=== PATIENT | female | born 1955 | race Caucasian/White ===

== ENCOUNTER → 2017-12-07 15:57 | Outpatient (CLI) | payer OTHER, SELFPAY ==
[2017-12-10 02:41] LABS: Fecal Immunochemical Test NOT DETECTED
== END ==
PROVIDERS: PCP Family Medicine; Visit Provider Family Medicine
DX: Z12.11 Encounter for screening for malignant neoplasm of colon (principal)
CPT/HCPCS: 82274

== ENCOUNTER → 2017-12-22 11:43 | Outpatient (CLI) | payer OTHER, SELFPAY ==
--- NOTE | 2017-12-22 11:45 | DI.MG.S_ITS ---
BILATERAL DIGITAL SCREENING MAMMOGRAM 3D/2D WITH CAD: 12/22/2017 CLINICAL: Baseline exam. Routine screening. No prior exams were available for comparison. The tissue of both breasts is heterogeneously dense. This may lower the sensitivity of mammography. Current study was also evaluated with a Computer Aided Detection (CAD) system. No significant masses, calcifications, or other findings are seen in either breast. IMPRESSION: NEGATIVE There is no mammographic evidence of malignancy. A 1 year screening mammogram is recommended.(12/23/2018) This exam was interpreted at Station ID: [id number]. NOTE: For mammograms, a report in lay terms will be sent to the patient. Approximately 15% of breast malignancies will not be visualized mammographically. In the management of a palpable breast mass, a negative mammogram must not discourage biopsy of a clinically suspicious lesion. Electronically Signed By: Simone dozier/mac:12/22/2017 17:07:15 letter sent: Normal Exam ACR BI-RADS Category 1: Negative 3341F
== END ==
PROVIDERS: PCP Family Medicine; Visit Provider Family Medicine
DX: Z12.31 Encounter for screening mammogram for malignant neoplasm of breast (principal)
CPT/HCPCS: 77063; 77067

== ENCOUNTER → 2018-09-01 12:52 | Outpatient (CLI) | payer OTHER, SELFPAY ==
[2018-09-01 13:25] LABS: Add Manual Diff / Slide Review NO; Basophils Absolute Auto 0 /uL (0-100); Eosinophils Absolute Auto 0 /uL (0-450); Eosinophils Percent Auto 0.9 % (2-4); Hematocrit 42.3 % (36-46); Hemoglobin 14.6 g/dL (12.0-16.0); Lymphocytes Absolute Auto 1300 /uL (1100-4500); Mean Corpuscular HGB Conc 34.5 % (30-36); Mean Corpuscular Hemoglobin 31.4 PG (26-34); Mean Corpuscular Volume 90.8 fL (80-100); Monocytes Absolute Auto 200 /uL (0-900); Monocytes Percent Auto 6.6 % (3-14); Neutrophils Absolute Auto 2100 /uL (1500-7000); Neutrophils Percent Auto 56.5 % (50-75); Platelet Count 197 X10^3/uL (150-400); Red Blood Cell Count 4.66 X10^6/uL (4.0-5.2); Red Cell Distribution Width 13.8 % (11.6-14.8); White Blood Cell Count 3.8 X10^3/uL (4.5-11.0)
[2018-09-01 14:09] LABS: Alanine Aminotransferase 19 IU/L (9-52); Albumin 4.4 g/dL (3.5-5.0); Albumin Globulin Ratio 1.8 (1.0-2.8); Alkaline Phosphatase 55 U/L (38-126); Aspartate Aminotransferase 22 IU/L (14-36); BUN Creatinine Ratio 13.8 (6-22); Bilirubin Total 0.6 mg/dL (0.2-1.3); Blood Urea Nitrogen 11 mg/dL (7-17); Calcium 9.5 mg/dL (8.4-10.2); Carbon Dioxide 31 mmol/L (22-32); Chloride 101 mmol/L (98-107); Estimated Glomerular Filt Rate > 60.0 mL/min (>60); Globulin 2.4 g/dL (1.7-4.1); Glucose 52 mg/dL (80-110); HEMOLYSIS < 15 (0-50); Lipase 86 U/L (23-300); Potassium 4.3 mmol/L (3.4-5.1); Sodium 140 mmol/L (137-145); Total Protein 6.8 g/dL (6.3-8.2)
[2018-09-07 00:19] LABS: (tTG) Ab, IgA < 1 U/mL
== END ==
PROVIDERS: PCP Family Medicine; Visit Provider Family Medicine
DX: R11.0 Nausea (principal)
CPT/HCPCS: 36415; 80053; 82784; 83516; 83690; 85025; 86255

== ENCOUNTER → 2018-11-02 13:16 | Outpatient (CLI) | payer OTHER, SELFPAY | PROVIDERS: PCP Family Medicine; Visit Provider Family Medicine | DX: K58.9 Irritable bowel syndrome, unspecified (principal) | CPT/HCPCS: 36415; 81376; 81382 ==

== ENCOUNTER → 2018-12-19 12:26 | Outpatient (CLI) | payer OTHER, SELFPAY | PROVIDERS: Family Provider Family Medicine; PCP Family Medicine; Visit Provider Family Medicine | DX: M81.0 Age-related osteoporosis without current pathological fracture (principal); Z78.0 Asymptomatic menopausal state; Z82.62 Family history of osteoporosis | CPT/HCPCS: 77080 ==

== ENCOUNTER → 2019-01-02 15:57 | Outpatient (CLI) | payer OTHER, SELFPAY ==
--- NOTE | 2019-01-02 | DI.MG.S_ITS ---
BILATERAL DIGITAL SCREENING MAMMOGRAM 3D/2D WITH CAD: 01/02/2019 CLINICAL: Routine screening. Comparison is made to exam dated: 12/22/2017 [facility]. The tissue of both breasts is heterogeneously dense. This may lower the sensitivity of mammography. Current study was also evaluated with a Computer Aided Detection (CAD) system. There are punctate calcifications of the right breast at anterior depth, with greatest involvement of the the superior lateral and inferior medial quadrants. There is an irregular asymmetry of the superior left breast at posterior depth seen only on the LMLO view. There is an irregular asymmetry of the inferior left breast at middle to posterior depth seen only on the LMLO view. IMPRESSION: INCOMPLETE: NEEDS ADDITIONAL IMAGING EVALUATION 1) There are punctate calcifications of the right breast at anterior depth, with greatest involvement of the the superior lateral and inferior medial quadrants. Additional diagnostic mammogram views with possible ultrasound are recommended for further evaluation. 2) There is an irregular asymmetry of the superior left breast at posterior depth. Additional diagnostic mammogram views with possible ultrasound are recommended for further evaluation. 3) There is an irregular asymmetry of the inferior left breast at middle to posterior depth. Additional diagnostic mammogram views with possible ultrasound are recommended for further evaluation. This exam was interpreted at Station ID: [id number]. NOTE: For mammograms, a report in lay terms will be sent to the patient. Approximately 15% of breast malignancies will not be visualized mammographically. In the management of a palpable breast mass, a negative mammogram must not discourage biopsy of a clinically suspicious lesion. Electronically Signed By: Srinivasan Solorio M.D. ecl/:01/03/2019 11:25:20 letter sent: Additional Imaging Needed ACR BI-RADS Category 0: Incomplete 3340F
== END ==
PROVIDERS: PCP Family Medicine; Visit Provider Family Medicine
DX: Z12.31 Encounter for screening mammogram for malignant neoplasm of breast (principal)
CPT/HCPCS: 77063; 77067

== ENCOUNTER → 2019-01-29 09:39 | Outpatient (CLI) | payer OTHER, SELFPAY ==
--- NOTE | 2019-01-29 09:40 | DI.MG.S_ITS ---
BILATERAL DIGITAL DIAGNOSTIC MAMMOGRAM 3D/2D WITH AXILLARY TAIL: 01/29/2019 CLINICAL: Additional evaluation requested from prior study. Comparison is made to exams dated: 01/02/2019 mammogram, 12/22/2017 mammogram - [facility], 03/25/2016 mammogram, and 01/22/2013 mammogram - [facility]. The tissue of both breasts is heterogeneously dense. This may lower the sensitivity of mammography. Previously identified diffuse punctate calcifications of the right breast at anterior depth, with greatest involvement of the the superior lateral and inferior medial quadrants on comparison screening mammograms of 01/02/19 persists with additional views. Previously noted irregular asymmetry of the superior left breast at posterior depth seen only on the LMLO view on comparison screening mammogram of 01/02/19 persists with additional views. Previously noted irregular asymmetry of the inferior left breast at middle to posterior depth seen only on the LMLO view on comparison screening mammogram of 01/02/19 persists with additional views. There are left breast vascular calcifications. There are linear scar markers overlying the right breast. No other significant masses, calcifications, or other findings are seen in either breast. IMPRESSION: INCOMPLETE: NEEDS ADDITIONAL IMAGING EVALUATION 1) Previously identified diffuse punctate calcifications of the right breast at anterior depth, with greatest involvement of the the superior lateral and inferior medial quadrants on comparison screening mammograms of 01/02/19 persists with additional views. A follow-up mammogram in 6 months is recommended to demonstrate stability/exclude maligancy. 2) Previously noted irregular asymmetry of the superior left breast at posterior depth seen only on the LMLO view on comparison screening mammogram of 01/02/19 persists with additional views. A targeted ultrasound is recommended and will be performed immediately following this exam. 3) Previously noted irregular asymmetry of the inferior left breast at middle to posterior depth seen only on the LMLO view on comparison screening mammogram of 01/02/19 persists with additional views. A targeted ultrasound is recommended and will be performed immediately following this exam. This exam was interpreted at Station ID: [id number]. NOTE: For mammograms, a report in lay terms will be sent to the patient. Approximately 15% of breast malignancies will not be visualized mammographically. In the management of a palpable breast mass, a negative mammogram must not discourage biopsy of a clinically suspicious lesion. Electronically Signed By: Srniivasan Solorio M.D. ecl/:01/29/2019 11:18:54 ACR BI-RADS Category 0: Incomplete 3340F
--- NOTE | 2019-01-29 09:40 | DI.US.S_ITS ---
LIMITED ULTRASOUND OF LEFT BREAST: 01/29/2019 CLINICAL: Patient returns today to evaluate a focal asymmetry in the left breast. Comparison is made to exams dated: 01/29/2019 mammogram, 01/02/2019 mammogram, 12/22/2017 mammogram - [facility], 03/25/2016 mammogram, and 03/05/2014 mammogram - [facility]. Color flow and real-time ultrasound of the left breast 11-1 o'clock and 4-8 o'clock regions were performed. Lovelace scale images of the real-time examination were reviewed. There is no ultrasound correlate for the previously noted irregular asymmetry of the superior left breast at posterior depth seen only on the LMLO view on comparison screening mammogram of 01/02/19 which persisted with additional views performed earlier today 01/29/19. There is a 0.5 x 0.4 x 0.6 cm oval indistinct hypoechoic cyst with posterior acoustic enhancement and no vascularity on Doppler ultrasound in the left breast at 6:30 position 2 cm from the nipple. This may correlate with the previously noted irregular asymmetry of the inferior left breast at middle to posterior depth seen only on the LMLO view on comparison screening mammogram of 01/02/19 which persisted with additional views performed earlier today 01/29/19. IMPRESSION: PROBABLY BENIGN 1) There is no ultrasound correlate for the previously noted irregular asymmetry of the superior left breast at posterior depth seen only on the LMLO view on comparison screening mammogram of 01/02/19 which persisted with additional views performed earlier today 01/29/19. A follow-up mammogram and possible ultrasound in 6 months is recommended to demonstrate stability. 2) There is a 0.5 x 0.4 x 0.6 cm oval indistinct hypoechoic cyst with posterior acoustic enhancement and no vascularity on Doppler ultrasound in the left breast at 6:30 position 2 cm from the nipple. This may correlate with the previously noted irregular asymmetry of the inferior left breast at middle to posterior depth seen only on the LMLO view on comparison screening mammogram of 01/02/19 which persisted with additional views performed earlier today 01/29/19. A follow-up mammogram and possible ultrasound in 6 months is recommended to demonstrate stability. 3) A follow-up diagnostic mammogram of the right breast is recommended to demonstrate stability of the previously identified diffuse punctate calcifications of the right breast at anterior depth first described on comparison screening mammograms of 01/02/19 which persisted with additional views on 01/29/19. 4) The patient is advised to monitor her breasts and to return sooner for re-evaluation should she feel anything grow or change. This exam was interpreted at Station ID: [id number]. Electronically Signed By: Srinivasan Solorio M.D. ecl/:01/29/2019 11:24:35 letter sent: Followup Recommended Ultrasound BI-RADS: 3 Probably benign
== END ==
PROVIDERS: Family Provider Family Medicine; PCP Family Medicine; Visit Provider Family Medicine
DX: R92.8 Other abnormal and inconclusive findings on diagnostic imaging of breast (principal); R92.1 Mammographic calcification found on diagnostic imaging of breast; N60.02 Solitary cyst of left breast; N64.89 Other specified disorders of breast
CPT/HCPCS: 76642; 77066; G0279

== ENCOUNTER → 2019-10-12 12:36 | Outpatient (CLI) | payer OTHER, SELFPAY ==
--- NOTE | 2019-10-12 12:37 | DI.US.S_ITS ---
ULTRASOUND OF LEFT BREAST: 10/12/2019 CLINICAL: 6 month follow-up of cysts. Comparison is made to exams dated: 10/12/2019 mammogram, 01/29/2019 ultrasound, 01/29/2019 mammogram, 01/02/2019 mammogram, 12/22/2017 mammogram - [facility], and 03/25/2016 mammogram - [facility]. Color flow ultrasound of the left breast was performed on the areas of interest. Lovelace scale images of the real-time examination were reviewed. The complicated cyst in the left breast at 6 o'clock anterior depth is slightly decreased in size from the comparison ultrasound dated 01/29/19. IMPRESSION: PROBABLY BENIGN The complicated cyst in the left breast is probably benign. A follow-up mammogram and an ultrasound in 6 months is recommended to demonstrate stability. Future imaging is recommended as follows: 04/12/2020 follow-up right mammogram for right breast calcifications. This exam was interpreted at Station ID: [id number]. Electronically Signed By: Rosanne tomlin/:10/12/2019 13:53:47 letter sent: Followup Recommended Ultrasound BI-RADS: 3 Probably benign
--- NOTE | 2019-10-12 12:37 | DI.MG.S_ITS ---
BILATERAL DIGITAL DIAGNOSTIC MAMMOGRAM 3D/2D SHORT-TERM FOLLOW-UP: 10/12/2019 CLINICAL: Short term follow up for bilateral breasts. Comparison is made to exams dated: 01/29/2019 ultrasound, 01/29/2019 mammogram, 01/02/2019 mammogram, 12/22/2017 mammogram - [facility], and 03/25/2016 mammogram - [facility]. The tissue of both breasts is heterogeneously dense. This may lower the sensitivity of mammography. There are stable diffuse punctate calcifications in the right breast central to the nipple anterior depth. The irregular asymmetry in the left breast posterior depth superior region seen on the mediolateral oblique view only is no longer seen. There also is an asymmetry in the left breast posterior depth inferior region seen on the mediolateral oblique view only. This is not significantly changed. No other significant masses or calcifications are seen in either breast. IMPRESSION: INCOMPLETE: NEEDS ADDITIONAL IMAGING EVALUATION The stable diffuse punctate calcifications in the right breast central to the nipple anterior depth are probably benign. A follow-up in 6 months is recommended. An ultrasound is recommended to further characterize the previously seen irregular asymmetry in the left breast posterior depth superior region seen on the mediolateral oblique view only. The stable asymmetry in the left breast posterior depth inferior region seen on the mediolateral oblique view only is indeterminate. A targeted ultrasound of the left breast is recommended and will be performed immediately following this exam. This exam was interpreted at Station ID: [id number]. NOTE: For mammograms, a report in lay terms will be sent to the patient. Approximately 15% of breast malignancies will not be visualized mammographically. In the management of a palpable breast mass, a negative mammogram must not discourage biopsy of a clinically suspicious lesion. Electronically Signed By: Rosanne tomlin/:10/12/2019 13:35:07 ACR BI-RADS Category 0: Incomplete 3340F
== END ==
PROVIDERS: Family Provider Family Medicine; PCP Family Medicine; Referring Provider Family Medicine; Visit Provider Family Medicine
DX: R92.8 Other abnormal and inconclusive findings on diagnostic imaging of breast (principal); R92.1 Mammographic calcification found on diagnostic imaging of breast; N60.02 Solitary cyst of left breast
CPT/HCPCS: 76642; 77066; G0279

== ENCOUNTER → 2019-12-25 14:01 | Outpatient (CLI) | payer OTHER, SELFPAY ==
[2019-12-25 15:13] LABS: Cholesterol 220 mg/dL (140-199); HDL Cholesterol 61 mg/dL (40-60); LDL Cholesterol Calculated 134 mg/dL (<100); Triglycerides 127 mg/dL (35-150)
[2019-12-25 15:41] LABS: Thyroid Stimulating Hormone 0.589 uIU/mL (0.47-4.68)
== END ==
PROVIDERS: Family Provider Family Medicine; PCP Family Medicine; Referring Provider Family Medicine; Visit Provider Family Medicine
DX: Z13.220 Encounter for screening for lipoid disorders (principal); Z13.29 Encounter for screening for other suspected endocrine disorder
CPT/HCPCS: 36415; 80061; 84443

== ENCOUNTER → 2020-06-09 12:41 | Outpatient (CLI) | payer OTHER, SELFPAY ==
--- NOTE | 2020-06-09 12:43 | DI.MG.S_ITS ---
BILATERAL DIGITAL DIAGNOSTIC MAMMOGRAM 3D/2D SHORT-TERM FOLLOW-UP: 06/09/2020 CLINICAL: Short term follow up for bilateral breasts. Comparison is made to exams dated: 10/12/2019 mammogram, 01/29/2019 mammogram, and 01/02/2019 mammogram - [facility]. The tissue of both breasts is heterogeneously dense. This may lower the sensitivity of mammography. There are stable benign diffuse punctate calcifications in the right breast central to the nipple anterior depth. The benign asymmetry in the left breast posterior depth inferior region seen on the mediolateral oblique view only is no longer seen. No other significant masses or calcifications are seen in either breast. IMPRESSION: BENIGN There is no mammographic evidence of malignancy. A 1 year screening mammogram is recommended. This exam was interpreted at Station ID: [id number]. NOTE: For mammograms, a report in lay terms will be sent to the patient. Approximately 15% of breast malignancies will not be visualized mammographically. In the management of a palpable breast mass, a negative mammogram must not discourage biopsy of a clinically suspicious lesion. Electronically Signed By: Hang Hanna acr/:06/09/2020 13:26:41 letter sent: Normal Exam ACR BI-RADS Category 2: Benign Finding(s) 3342F
== END ==
PROVIDERS: Family Provider Family Medicine; PCP Family Medicine; Referring Provider Family Medicine; Visit Provider Family Medicine
DX: R92.8 Other abnormal and inconclusive findings on diagnostic imaging of breast (principal)
CPT/HCPCS: 77066; G0279

== ENCOUNTER → 2021-01-21 09:30 | Outpatient (CLI) | payer OTHER, SELFPAY ==
[2021-01-21 10:32] LABS: Cholesterol 222 mg/dL (140-199); Glucose 97 mg/dL (80-110); HDL Cholesterol 64 mg/dL (40-60); LDL Cholesterol Calculated 141 mg/dL (<100); Triglycerides 87 mg/dL (35-150)
== END ==
PROVIDERS: Family Provider Family Medicine; PCP Family Medicine; Referring Provider Family Medicine; Visit Provider Family Medicine
DX: E78.5 Hyperlipidemia, unspecified (principal); Z13.1 Encounter for screening for diabetes mellitus
CPT/HCPCS: 36415; 80061; 82947

== ENCOUNTER → 2021-02-18 13:11 | Outpatient (CLI) | payer OTHER, SELFPAY ==
--- NOTE | 2021-02-18 13:13 | DI.US.S_ITS ---
PROCEDURE: US ABDOMEN LIMITED INDICATIONS: upper abdominal mass TECHNIQUE: Real-time focused scanning was performed of the abdomen, with image documentation. COMPARISON: None. FINDINGS: Within the inferior epigastric area at the area of clinical concern, there is a fat containing partially reducible hernia along the midline. The hernia neck measures 3.9 x 2.2 mm IMPRESSION: Small fat containing ventral wall hernia seen within the inferior epigastric region, which is partially reducible. Dictated by: Andrea Betts M.D. on 02/18/2021 at 13:08 Approved by: Andrea Betts M.D. on 02/18/2021 at 13:09
== END ==
PROVIDERS: Family Provider Family Medicine; PCP Family Medicine; Referring Provider Family Medicine; Visit Provider Family Medicine
DX: K43.9 Ventral hernia without obstruction or gangrene (principal)
CPT/HCPCS: 76705

== ENCOUNTER → 2021-04-16 13:12 | Outpatient (CLI) | payer OTHER, SELFPAY ==
--- NOTE | 2021-04-16 13:13 | DI.US.S_ITS ---
PROCEDURE: US PELVIC COMPLETE INDICATIONS: PAIN. FAMILY HISTORY OF BENIGN OVARIAN TUMOR TECHNIQUE: Real-time scanning was performed of the pelvic organs, with image documentation. Additional endovaginal scanning was necessary due to incomplete visualization of the adnexal and endometrial structures by transabdominal scanning. COMPARISON: None. FINDINGS: Uterus: Normal size and appearance of the uterus. No uterine mass. Normal thickness endometrium measuring 6 millimeters in double air thickness. Ovaries: The right ovary measures 0.9 x 1.1 x 2.3 centimeters and contains a 1.2 centimeter hypoechoic thick-walled cyst without peripheral vascularity. Left ovary not visualized Other: No pathologic free abdominal or pelvic fluid. IMPRESSION: Thick walled right ovarian cyst measuring 1.1 centimeters. This may represent a collapsing hemorrhagic cyst, although follow-up recommended to document resolution in 4-6 weeks. Ovarian neoplasm is not strictly excluded. We strive to produce accurate, complete, and clear reports of imaging services. To assist us in improving patient care, this report was composed using standard report templates and voice recognition software. Therefore, it may contain abnormal punctuation, insertions and/or omissions. Occasional wrong-word or sound-alike substitutions may occur. Though we review the report and make efforts to correct it, we do recommend that the report be read carefully in proper context to recognize any text inaccuracies. Dictated by: Otto Cardoso M.D. on 04/16/2021 at 15:01 Approved by: Otto Cardoso M.D. on 04/16/2021 at 15:06
== END ==
PROVIDERS: Family Provider Family Medicine; PCP Family Medicine; Referring Provider Family Medicine; Visit Provider Family Medicine
DX: N83.201 Unspecified ovarian cyst, right side (principal); R10.2 Pelvic and perineal pain
CPT/HCPCS: 76830; 76856

== ENCOUNTER → 2021-05-27 12:37 | Outpatient (CLI) | payer OTHER, SELFPAY ==
--- NOTE | 2021-05-27 12:41 | DI.US.S_ITS ---
PROCEDURE: US PELVIC COMPLETE INDICATIONS: 6 WEEK F/U RIGHT OVARIAN CYST TECHNIQUE: Real-time scanning was performed of the pelvic organs, with image documentation. Additional endovaginal scanning was necessary due to incomplete visualization of the adnexal and endometrial structures by transabdominal scanning. COMPARISON: [facility], [place], US PELVIC COMPLETE, 04/16/2021, 13:37. FINDINGS: Uterus: Uterus is anteverted and normal in size at 4.9 x 2.0 x 3.9 cm. The myometrium is homogeneous. The endometrium measures 1.0 mm combined thickness. Ovaries: The right ovary measures 1.7 x 1.0 x 0.9 cm. The left ovary measures 2.2 x 0.9 x 0.7 cm. The previous right ovarian thick-walled cystic lesion has decreased in size since the previous study. It was previously 1.0 x 0.8 x 0.9 cm. It is now 0.8 x 0.5 x 0.4 cm. Other: No pathologic free abdominal or pelvic fluid. IMPRESSION: Slight interval decrease in size of cystic lesion of the right ovary. Comment: In this patient with a family history of ovarian tumor, consider follow-up ultrasound in 12 months. We strive to produce accurate, complete, and clear reports of imaging services. To assist us in improving patient care, this report was composed using standard report templates and voice recognition software. Therefore, it may contain abnormal punctuation, insertions and/or omissions. Occasional wrong-word or sound-alike substitutions may occur. Though we review the report and make efforts to correct it, we do recommend that the report be read carefully in proper context to recognize any text inaccuracies. Dictated by: Adams Avendaño M.D. on 05/27/2021 at 16:37 Approved by: Adams Avendaño M.D. on 05/27/2021 at 16:42
== END ==
PROVIDERS: Family Provider Family Medicine; PCP Family Medicine; Referring Provider Physician Assistant; Visit Provider Physician Assistant
DX: N83.201 Unspecified ovarian cyst, right side (principal)
CPT/HCPCS: 76856

== ENCOUNTER → 2021-06-22 14:08 | Outpatient (CLI) | payer OTHER, SELFPAY ==
--- NOTE | 2021-06-22 | DI.MG.S_ITS ---
BILATERAL DIGITAL SCREENING MAMMOGRAM 3D/2D WITH CAD: 06/22/2021 CLINICAL: Routine screening. Comparison is made to exams dated: 06/09/2020 mammogram, 10/12/2019 mammogram, 01/29/2019 mammogram, and 01/02/2019 mammogram - [facility]. The tissue of both breasts is heterogeneously dense. This may lower the sensitivity of mammography. Current study was also evaluated with a Computer Aided Detection (CAD) system. No significant masses, calcifications, or other findings are seen in either breast. There has been no significant interval change. IMPRESSION: NEGATIVE There is no mammographic evidence of malignancy. A 1 year screening mammogram is recommended. This exam was interpreted at Station ID: [id number] NOTE: For mammograms, a report in lay terms will be sent to the patient. Approximately 15% of breast malignancies will not be visualized mammographically. In the management of a palpable breast mass, a negative mammogram must not discourage biopsy of a clinically suspicious lesion. Electronically Signed By: Tee mckenzie/mac:06/22/2021 15:02:41 letter sent: Normal Exam ACR BI-RADS Category 1: Negative 3341F
== END ==
PROVIDERS: Family Provider Family Medicine; PCP Family Medicine; Referring Provider Family Medicine; Visit Provider Family Medicine
DX: Z12.31 Encounter for screening mammogram for malignant neoplasm of breast (principal)
CPT/HCPCS: 77063; 77067

== ENCOUNTER → 2021-06-30 10:38 | Outpatient (CLI) | payer OTHER, SELFPAY ==
[2021-06-30 11:15] LABS: COVID19 -Nasal RAPID Negative (Negative)
== END ==
PROVIDERS: Family Provider Family Medicine; PCP Family Medicine; Visit Provider Surgery
DX: Z01.812 Encounter for preprocedural laboratory examination (principal); Z20.822 Contact with and (suspected) exposure to COVID-19
CPT/HCPCS: 87635; C9803

== ENCOUNTER 2021-07-01 08:38 | Day surgery (SDC) | payer OTHER, SELFPAY ==
[2021-06-29 08:16] VITALS: BMI 22.6
[2021-07-01] VITALS (10 sets, daily range): BP systolic 107–136; BP diastolic 52–69; PULSE 64–122; RESP 8–18; TEMP 36.1–36.8; O2SAT 98–100; BMI 22.6
[2021-07-01] MEDS: LACTATED RINGERS 1,000 ML 100 ML IV (09:19)
--- NOTE | 2021-07-01 10:22 | PM.HP.1 ---
History of Present Illness History of Present Illness Date Patient Seen: 07/01/21 Chief complaint: OPEN VENTRAL HERNIA REPAIR Narrative: 65 y.o woman with a partially reducible epigastric ventral hernia here for elective repair. No interval changes in health. Patient History Medical History Abnormal Pap smear of cervix Anesthesia complication Anxiety (~2015) Chicken pox (~1961) Depression (~2006) Gastric ulcer (~1969) GERD (gastroesophageal reflux disease) (~2009) Infertility (~1991) Irritable bowel syndrome (~1994) Lactose intolerance (~1994) Migraines (~2009) Osteopenia Osteoporosis (~2011) Plantar fibromatosis (~2016) Plantar warts (~2014) Vision disorder Surgical History Anesthesia Breast fibroadenoma (~1977) H/O laparoscopy (1995) History of nasal surgery (1972) History of tonsillectomy (~1979) Hx of breast surgery (1979) Family & Social History Family History Father Bladder cancer Heart disease Hyperlipidemia Hypertension Stroke Smoker Mother Cancer Diabetes mellitus Mental health problem Smoker Sister Parkinson's disease Hypertension Grandmother Mental health problem Grandfather Cancer Social History: household members spouse other piano, kayaking, skiing Tobacco & Substance use: Smoking Status Never smoker alcohol intake frequency a few times a week Substance Use Type does not use Meds Home Medications and Allergies Home Medications Medication Instructions Recorded Confirmed Type modulon 200 mg PO BID 01/29/19 07/01/21 History amitriptyline 25 mg tablet See Rx Instructions .ROUTE 02/27/21 07/01/21 Rx .COMPLEX #90 tab calcium carbonate 500 mg-vitamin 2 tab PO DAILY 04/09/21 07/01/21 History D3 10 mcg (400 unit) tablet (Calcium 500 + D) zolpidem 5 mg tablet 5 mg PO BEDTIME PRN #90 tab 05/22/21 07/01/21 Rx clonazepam 0.5 mg tablet 0.5 mg PO DAILY PRN #30 tab 06/10/21 07/01/21 Rx Allergies Allergy/AdvReac Type Severity Reaction Status Date / Time No Known Drug Allergies Allergy Verified 04/07/21 15:20 Exam Vital Signs (past 8 hours): - 07/01/21 09:00 Temperature 98.2 F Pulse Rate 90 Respiratory Rate 16 Blood Pressure 107/60 Pulse Oximetry 100 Oxygen Delivery Method Room Air Narrative Exam Narrative: Gen-Adult woman alert and oriented Abdomen-Soft, reducible epigastric hernia. Ext-WWP Assessment & Plan Assessment and plan (1) Ventral hernia: Qualifiers: Obstruction and gangrene presence: without obstruction or gangrene Qualified Code(s): K43.9 - Ventral hernia without obstruction or gangrene Status: Acute Assessment & Plan narrative: 65 y.o woman with a reducible epigastric ventral hernia here for elective repair. Operative details discussed. Risks including bleeding, infection, reocuccurence, seroma damage to surrounding structures. Her questions have been answered and she is in agreement with this plan. Time Spent With Patient Critical Care time: I spent a total of [] minutes of critical care time on this patient's care today; this time is exclusive of procedural time.
[2021-07-01] MEDS: CEFAZOLIN 2 GM/20 ML SYRINGE IV (11:00)
--- NOTE | 2021-07-01 11:05 | SUR.OPER ---
Supine on padded OR bed, head on pillow, arms secured on padded arm boards at <90 degrees abduction, legs uncrossed, safety belt at thigh, tape over blanket over lower legs.
[2021-07-01] MEDS: BUPIVACAINE 0.25% (PF) VIAL 30 ML INJ (11:09)
[2021-07-01] MEDS: HYDROCODONE/ACET 5/325 TABLET 1 TAB PO ×2 (12:04→12:43)
[2021-07-01] MEDS: ONDANSETRON 4 MG/2 ML INJ IV (12:14)
[2021-07-01] MEDS: fentaNYL 100 MCG/2 ML INJ IV (12:15)
--- NOTE | 2021-07-01 12:48 | SUR.PHASEI ---
Water, ice chips, applesauce, and soda cracker given prior to PO med
--- NOTE | 2021-07-01 14:39 | SUR.PHASEII ---
13:08-Patient recieved from Eugenie Garcias RN. patient sitting upright. Concern over pain on deep inspiration, in no obvious distress. reported and vs reflect in normal limits. Reassured with ventral hernia/ incision site , may have discomfort due to location of incision/ referred pain. using Incentive Spirometer prn with out complaints/distress and reaching 1500ml or more. sterristrips cdi. abdomen soft. updated. 1345-Home instructions reveiwed with patient.questions answered. given Dr Borrego's phone number if emergency/questions once home. stated did not know how she will get oob, let relax more. vss. no changes with dressing/op area. Sats remain 99-100% on room air. 1400-states readiness to progress to home now. encouraged to go home. Sat up at edge of bed to dress. Discussed calling if needed help. 1410-iv out. Used restroom,[employer] Flor[employer] states patient voided qs. Discharged by w/chair with all belongings and incentive spirometer/ice pack / instruction papers. Enouraged to use drive thru or have go into pharmacy for oyster picker of medications.
--- NOTE | 2021-07-01 16:13 | PM.OP.1 ---
Operative Date/Time/Diagnoses Date of procedure: 07/01/21 Time of procedure: 16:13 Pre-op diagnosis: Ventral hernia Post-op diagnosis: same Procedure & Clinicians Procedure: Open ventral hernia repair with mesh Same procedure as scheduled: Yes Indications: Reducible epigastric ventral hernia with a 4 cm fascial defect Surgeon: Roel Borrego Anesthesia Type: General Operative Notes Findings: 4 cm fascial defect hernia containing viable omentum Specimen(s): none sent Estimated Blood Loss (mL): 20 Procedure in detail: Patient was brought to the operating room placed supine on the table. Bilateral lower extremity compression devices were applied. General anesthesia was induced and they were intubated with an endotracheal tube. They received 2 g of Ancef prior to skin incision. They were prepped and draped in sterile fashion. A time-out was performed. A upper midline incision was made over the hernia. The subcutaneous tissues were divided. The hernia was identified and the hernia sac was dissected off the fascia defect. The hernia sac was sharply opened and contained viable omentum. The omentum was reduced back into the abdomen. Using blunt dissection I carefully carefully freed the hernia sac from beneath the fascia defect in order to accommodate the mesh. The fascia defect was 4 cm in maximal diameter. A Bard Ventralex ST hernia patch 8x 12 cm was inserted beneath the fascia defect within the abdomen with the antiadhesive side down. The mesh was anchored in multiple locations using Ethibond suture to the fascia and the fascial defect was closed over the mesh. The subcutaneous tissues were reapproximated using 3 0 Vicry,l skin closed with 4 0 Monocryl followed by the application of Dermabond and Steri-Strips. Sponge instrument count at the end of the operation was correct. Patient tolerated procedure well was extubated and transferred to postoperative care unit in stable condition. Complications: none Post-operative Condition: stable Disposition: same day surgery
== END 2021-07-01 14:10 | disposition home or self-care (01) ==
PROVIDERS: Family Provider Family Medicine; PCP Family Medicine; Referring Provider Surgery; Visit Provider Surgery
PROC: (CPT 49560; principal; 2021-07-01 10:15)
DX: K43.9 Ventral hernia without obstruction or gangrene (principal); F41.9 Anxiety disorder, unspecified; K58.9 Irritable bowel syndrome, unspecified
CPT/HCPCS: 49560; 49568; 82962; J0690; J1100; J2250; J2405; J2704; J3010

== ENCOUNTER → 2022-03-26 10:32 | Outpatient (CLI) | payer MEDICARE, OTHER, SELFPAY ==
[2022-03-26 11:19] LABS: Add Manual Diff / Slide Review NO; Basophils Absolute Auto 0 /uL (0-100); Basophils Percent Auto 0.9 % (0-2); Eosinophils Absolute Auto 100 /uL (0-450); Eosinophils Percent Auto 2.7 % (2-4); Hematocrit 41.6 % (36-46); Hemoglobin 14.1 g/dL (12.0-16.0); Lymphocytes Absolute Auto 1100 /uL (1100-4500); Lymphocytes Percent Auto 34.3 % (25-40); Mean Corpuscular HGB Conc 33.8 % (30-36); Mean Corpuscular Hemoglobin 30.6 PG (26-34); Mean Corpuscular Volume 90.5 fL (80-100); Monocytes Absolute Auto 200 /uL (0-900); Monocytes Percent Auto 6.9 % (3-14); Neutrophils Absolute Auto 1800 /uL (1500-7000); Neutrophils Percent Auto 55.2 % (50-75); Platelet Count 186 X10^3/uL (150-400); Red Blood Cell Count 4.59 X10^6/uL (4.0-5.2); Red Cell Distribution Width 13.8 % (11.6-14.8); White Blood Cell Count 3.3 X10^3/uL (4.5-11.0)
[2022-03-26 11:54] LABS: Alanine Aminotransferase 25 IU/L (<35); Albumin 4.4 g/dL (3.5-5.0); Albumin Globulin Ratio 1.8 (1.0-2.8); Alkaline Phosphatase 68 U/L (38-126); Aspartate Aminotransferase 31 IU/L (14-36); BUN Creatinine Ratio 20.8 (6-22); Bilirubin Total 0.6 mg/dL (0.2-1.3); Blood Urea Nitrogen 16 mg/dL (7-17); Carbon Dioxide 31 mmol/L (22-32); Chloride 99 mmol/L (98-107); Cholesterol 238 mg/dL (140-199); Estimated Glomerular Filt Rate > 60 mL/min (>60); Globulin 2.5 g/dL (1.7-4.1); Glucose 93 mg/dL (80-110); HDL Cholesterol 63 mg/dL (40-60); HEMOLYSIS < 15 (0-50); LDL Cholesterol Calculated 156 mg/dL (<100); Potassium 4.2 mmol/L (3.4-5.1); Sodium 137 mmol/L (137-145); Total Protein 6.9 g/dL (6.3-8.2); Triglycerides 94 mg/dL (35-150)
== END ==
PROVIDERS: Family Provider Family Medicine; PCP Family Medicine; Referring Provider Family Medicine; Visit Provider Family Medicine
DX: E78.5 Hyperlipidemia, unspecified (principal); F32.9 Major depressive disorder, single episode, unspecified; F41.9 Anxiety disorder, unspecified; M81.0 Age-related osteoporosis without current pathological fracture
CPT/HCPCS: 36415; 80053; 80061; 85025

== ENCOUNTER → 2022-06-04 14:01 | Outpatient (CLI) | payer MEDICARE, OTHER, SELFPAY ==
--- NOTE | 2022-06-04 14:02 | DI.US.S_ITS ---
PROCEDURE: US PELVIC COMPLETE INDICATIONS: following up on right ovary TECHNIQUE: Real-time scanning was performed of the pelvic organs, with image documentation. Additional endovaginal scanning was necessary due to incomplete visualization of the adnexal and endometrial structures by transabdominal scanning. COMPARISON: [facility], US, US PELVIC COMPLETE, 05/27/2021, 12:59. FINDINGS: Uterus: Uterus is anteverted and normal in size at 5.5 x 2.0 x 3.5 cm. The myometrium is homogeneous. The endometrium measures 1 mm combined thickness. Cervical calcifications. Ovaries: The right ovary measures 2.0 x 0.8 x 1.0 cm, with a calculated ovarian volume of 1 cc. The left ovary is not visualized. Subcentimeter right ovarian cystic lesion without internal complexity, unchanged from prior. Other: No pathologic free abdominal or pelvic fluid. IMPRESSION: Unchanged non complex right ovarian cystic lesion, probably benign. We strive to produce accurate, complete, and clear reports of imaging services. To assist us in improving patient care, this report was composed using standard report templates and voice recognition software. Therefore, it may contain abnormal punctuation, insertions and/or omissions. Occasional wrong-word or sound-alike substitutions may occur. Though we review the report and make efforts to correct it, we do recommend that the report be read carefully in proper context to recognize any text inaccuracies. Dictated by: Fausto Carroll M.D. on 06/04/2022 at 15:43 Approved by: Fausto Carroll M.D. on 06/04/2022 at 15:46
== END ==
PROVIDERS: Family Provider Family Medicine; PCP Family Medicine; Referring Provider Family Medicine; Visit Provider Family Medicine
DX: N83.201 Unspecified ovarian cyst, right side (principal)
CPT/HCPCS: 76830; 76856

== ENCOUNTER → 2022-07-20 12:32 | Outpatient (CLI) | payer MEDICARE, OTHER, SELFPAY ==
--- NOTE | 2022-07-20 | DI.MG.S_ITS ---
BILATERAL DIGITAL SCREENING MAMMOGRAM 3D/2D WITH CAD: 07/20/2022 CLINICAL: Routine screening. Comparison is made to exams dated: 06/22/2021 mammogram, 06/09/2020 mammogram, 10/12/2019 mammogram, and 01/29/2019 mammogram - [facility]. Both breasts are heterogeneously dense, which may obscure small masses (category c / 51-75% glandular tissue). Current study was also evaluated with a Computer Aided Detection (CAD) system. No significant masses, calcifications, or other findings are seen in either breast. There has been no significant interval change. IMPRESSION: NEGATIVE There is no mammographic evidence of malignancy. A 1 year screening mammogram is recommended. Based on the Tyrer Cuzick model (a risk assessment model) the patient's lifetime risk is 9.0% and her 10 year risk is 4.3%. According to the ACR, ACS, and NCCN guidelines, an annual breast MRI exam along with mammogram is recommended if the patient's lifetime risk is 20% or greater. This exam was interpreted at Station ID: [id number]. NOTE: For mammograms, a report in lay terms will be sent to the patient. Approximately 15% of breast malignancies will not be visualized mammographically. In the management of a palpable breast mass, a negative mammogram must not discourage biopsy of a clinically suspicious lesion. Electronically Signed By: Rosanne tomlin/mac:07/20/2022 16:39:55 letter sent: Normal Exam ACR BI-RADS Category 1: Negative [id number]
== END ==
PROVIDERS: Family Provider Family Medicine; PCP Family Medicine; Referring Provider Family Medicine; Visit Provider Family Medicine
DX: Z12.31 Encounter for screening mammogram for malignant neoplasm of breast (principal)
CPT/HCPCS: 77063; 77067

== ENCOUNTER → 2023-08-12 10:17 | Outpatient (CLI) | payer MEDICARE, OTHER, SELFPAY ==
--- NOTE | 2023-08-12 10:19 | DI.MG.S_ITS ---
BILATERAL DIGITAL SCREENING MAMMOGRAM 3D/2D WITH CAD: 08/12/2023 CLINICAL: Routine screening. Comparison is made to exams dated: 07/20/2022 mammogram, 06/22/2021 mammogram, 06/09/2020 mammogram, and 10/12/2019 mammogram - [facility]. Both breasts are heterogeneously dense, which may obscure small masses (category c / 51-75% glandular tissue). Current study was also evaluated with a Computer Aided Detection (CAD) system. No significant masses, calcifications, or other findings are seen in either breast. There has been no significant interval change. IMPRESSION: NEGATIVE There is no mammographic evidence of malignancy. A 1 year screening mammogram is recommended. Based on the Tyrer Cuzick model (a risk assessment model) the patient's lifetime risk is 8.6% and her 10 year risk is 4.3%. According to the ACR, ACS, and NCCN guidelines, an annual breast MRI exam along with mammogram is recommended if the patient's lifetime risk is 20% or greater. This exam was interpreted at Station ID: [id number]. NOTE: For mammograms, a report in lay terms will be sent to the patient. Approximately 15% of breast malignancies will not be visualized mammographically. In the management of a palpable breast mass, a negative mammogram must not discourage biopsy of a clinically suspicious lesion. Electronically Signed By: Bull mas/mac:08/12/2023 16:03:21 letter sent: Normal Exam ACR BI-RADS Category 1: Negative [id number]
[2023-08-12 11:59] LABS: Cholesterol 232 mg/dL (140-199); Glucose 96 mg/dL (80-110); HDL Cholesterol 74 mg/dL (40-60); LDL Cholesterol Calculated 144 mg/dL (<100); Triglycerides 69 mg/dL (35-150)
== END ==
PROVIDERS: Family Provider Family Medicine; PCP Family Medicine; Referring Provider Family Medicine; Visit Provider Family Medicine
DX: Z12.31 Encounter for screening mammogram for malignant neoplasm of breast (principal); Z13.1 Encounter for screening for diabetes mellitus; E78.5 Hyperlipidemia, unspecified; R92.333 Mammographic heterogeneous density, bilateral breasts
CPT/HCPCS: 36415; 77063; 77067; 80061; 82947

== ENCOUNTER → 2023-11-11 15:06 | Outpatient (CLI) | payer MEDICARE, OTHER, SELFPAY ==
--- NOTE | 2023-11-14 20:49 | DI.NM.S_ITS ---
DATE OF SERVICE: 11/11/2023 PROCEDURE: Exercise treadmill stress test without imaging. ORDERING PROVIDER: Dr. Radha Landry. INDICATIONS: The patient is a 67-year-old female with GERD and atypical chest pain. FINDINGS: 1. The patient was able to exercise for 9 minutes 1 second on a standard Nghia protocol suggesting excellent exercise capacity with an BETO of -68%, achieving 10.1 METs. 2. She had a normal heart rate and blood pressure response to exercise, achieving a maximum heart rate of 144 bpm (94% of her predicted maximum). 3. She had no chest discomfort or anginal symptoms. 4. Her resting ECG shows sinus rhythm with normal ST segments. There are no significant ST-segment shifts or arrhythmias with stress. IMPRESSION: 1. Normal exercise treadmill stress test for ischemia. 2. Excellent exercise capacity without angina. Andrea Barbara - RS/jv/MT doc#: [id number]/job#: [id number] dd: 11/14/2023 16:58:00 dt: 11/14/2023 20:41:00 DICTATING MD/COPIES TO: Jamie Galarza MD; Radha Landry MD COPIES MNE: CLAUDIO;
== END ==
PROVIDERS: Family Provider Family Medicine; PCP Family Medicine; Referring Provider Family Medicine; Visit Provider Family Medicine
DX: R07.9 Chest pain, unspecified (principal)
CPT/HCPCS: 93017

== ENCOUNTER 2023-12-20 11:22 | Emergency (ER) | payer MEDICARE, OTHER, SELFPAY ==
[2023-12-20 11:26] VITALS: BP 127/60; PULSE 90; RESP 22; TEMP 37.2; O2SAT 100; BMI 21.9
--- NOTE | 2023-12-20 12:18 | ED_ITS ---
HPI - URI/Sore Throat <Makayla Guerrero PA-C - Last Filed: 12/20/23 14:38> General Chief Complaint: Upper Respiratory Symptoms Stated Complaint: Cough , Virus Time Seen by Provider: 12/20/23 12:14 Source: patient Mode of arrival: Ambulatory History of Present Illness HPI Narrative: 68-year-old female presents with a cough times 11 days. She states she has been coughing up some clear sputum. She is denying any fever or chills, she has been using Advair not for airspace disease but it was prescribed recently for cough, she also uses Flonase nasal, Neti pot, she does endorse some sinus pressure and some yellow discharge from the nose. She states she is coughs so forcefully that she wants to gag. She is denying any chest pain, no recent travel, other treatment include an [id number] cough suppressant. Related Data Home Medications Medication Instructions Recorded Confirmed modulon 200 mg PO BID IBS 01/29/19 09/07/23 calcium carbonate 1,300 mg PO DAILY 04/02/22 09/07/23 cholecalciferol (vitamin D3) 25 25 mcg PO DAILY 04/02/22 09/07/23 mcg (1,000 unit) capsule ketoconazole 2 % shampoo topical Scalp itching 09/07/23 09/07/23 omega-3s 300 ap-jkw-upt-other cap PO Dry eyes 09/07/23 09/07/23 [id number] oil 1,000 mg capsule ([place]-3 Fish Oil) Previous Rx's Medication Instructions Recorded amitriptyline 10 mg tablet 20 mg (2 x 10 mg) PO DAILY #60 tabs 09/16/23 clonazepam 0.5 mg tablet 0.5 mg PO BID PRN anxiety #60 tabs 10/12/23 zolpidem 5 mg tablet 5 mg PO BEDTIME PRN insomnia #90 11/07/23 tabs fluticasone 100 mcg-salmeterol 50 1 ea inhalation BID #60 ea 12/13/23 mcg/dose blistr powdr for inhalation (Advair Diskus) fluticasone 100 mcg-salmeterol 50 1 inh inhalation BID #60 ea 12/13/23 mcg/dose blistr powdr for inhalation (Advair Diskus) amoxicillin 875 mg-potassium 1 tab PO BID #20 tabs 12/20/23 clavulanate 125 mg tablet codeine 10 mg-guaifenesin 200 mg/5 5 ml PO Q6H #473 mL 12/20/23 mL oral liquid Allergies Allergy/AdvReac Type Severity Reaction Status Date / Time No Known Drug Allergies Allergy Verified 09/07/23 14:23 Review of Systems <Makayla Guerrero PA-C - Last Filed: 12/20/23 14:38> Review of Systems Narrative: All other systems reviewed and are negative. Patient History <Makayla Guerrero PA-C - Last Filed: 12/20/23 14:38> Medical History Anesthesia complication Vision disorder Plantar warts (~2014) Depression (~2006) Anxiety (~2015) Migraines (~2009) Plantar fibromatosis (~2016) Osteoporosis (~2011) Osteopenia Chicken pox (~1961) Infertility (~1991) Abnormal Pap smear of cervix Lactose intolerance (~1994) Irritable bowel syndrome (~1994) GERD (gastroesophageal reflux disease) (~2009) Gastric ulcer (~1969) Surgical History Hx of breast surgery (1979) History of nasal surgery (1972) H/O laparoscopy (1995) Anesthesia History of tonsillectomy (~1979) Breast fibroadenoma (~1977) Family History Father Bladder cancer Heart disease Hyperlipidemia Hypertension Stroke Smoker Mother Cancer Diabetes mellitus Mental health problem Smoker Sister Parkinson's disease Hypertension Grandmother Mental health problem Grandfather Cancer Social History marital status: household members: spouse pets and animals: Yes education level: college occupational status: employed leisure activities: exercise and reading other: piano, kayaking, skiing seatbelt use: always helmet use: Yes water heater temp set < 120 deg: Yes working smoke detector in home: Yes fire extinguisher in home: Yes carbon monox detector in home: Yes firearms in home: No Smoking Status: Never smoker during the past year weight has: remained stable well-balanced diet: daily or most days daily servings fruits/ve or more times/day caffeine: Yes eating out: 1-3 times/week Type(s) of exercise: weight lifting frequency: 3-4 times per week duration: 45-60 minutes/day Smoking Status: Never smoker alcohol intake frequency: a few times a week Substance Use Type: does not use Exam <Makayla Guerrero PA-C - Last Filed: 12/20/23 14:38> Initial Vital Signs Initial Vital Signs: Vital Signs Temperature 99 F 12/20/23 11:26 Pulse Rate 90 12/20/23 11:26 Respiratory Rate 22 12/20/23 11:26 Blood Pressure 127/60 12/20/23 11:26 Pulse Oximetry 100 12/20/23 11:26 Oxygen Delivery Method Room Air 12/20/23 11:26 Vital signs reviewed and are normal. Const Other: Smiling, seated, pleasantly conversing, work of breathing is normal, slightly nasal sounding. [facility] Head: normal to inspection, normocephalic, atraumatic and other (Tender right frontal sinus and bilateral maxillary without guarding) Ears: hearing grossly normal bilaterally, external ears normal, TM's normal bilaterally, EAC's normal, mastoids normal and no periauricular adenopathy Nose: external nose normal, No epistaxis, mucous membranes and turbinates abnormal (Mild swelling of nasal tissues no bleeding points) and nasal discharge (Clear no purulence) Mouth: oral mucosae normal, lip normal, tongue normal and oropharynx normal Teeth and gingiva: dentition normal and gingiva normal Throat: posterior oropharynx normal, postnasal drainage and tonsils absent Eyes Sclera: sclerae normal Neck Neck: normal visual inspection, full ROM, no meningeal signs, trachea midline and supple Lymphatic: No lymphadenopathy Chest Other: No discoloration, no rash. No swelling. Resp Effort & Inspection: normal respiratory effort, able to speak in complete sent ences, no audible wheezes and cough Quality of cough: dry Auscultation: clear to auscultation bilaterally, no crackles, lung sounds not diminished, no rales, no rhonchi and no wheezes Other: Equal expansion. Occasional dry reproducible cough. Cardio Rate: regular rate Rhythm: regular rhythm Skin Other: Normal color, turgor, temperature. Neuro Other: Alert and oriented x4. <Juan Jose Seo DO - Rojas Filed: 12/20/23 15:01> Initial Vital Signs Initial Vital Signs: Vital Signs Temperature 99 F 12/20/23 11:26 Pulse Rate 90 12/20/23 11:26 Respiratory Rate 22 12/20/23 11:26 Blood Pressure 127/60 12/20/23 11:26 Pulse Oximetry 100 12/20/23 11:26 Oxygen Delivery Method Room Air 12/20/23 11:26 Course <Makayla Guerrero PA-C - Last Filed: 12/20/23 14:38> Course Course Narrative: Resting comfortably throughout her stay, vital signs remained normal, chest x- ray was negative, her respiratory panel came back with entero rhino virus only. Discussed potential sinusitis based on her pain and symptoms and I have opted to prescribe Augmentin. Regarding her cough she would like to try a sedating cough syrup, she has had some in the past with some good results and it will allow her to sleep. Orders Ordered: ED Orders 12/20/23 12:25 XR chest 2V Stat 12/20/23 12:50 Respiratory Panel (Film Array) Stat Vital Signs Vital signs: Vital Signs - 8 hr 12/20/23 11:26 12/20/23 14:29 Temperature 99 F Pulse Rate 90 80 Respiratory Rate 22 16 Blood Pressure 127/60 113/53 L Pulse Oximetry 100 100 Oxygen Delivery Method Room Air Room Air <Juan Jose Seo DO - Last Filed: 12/20/23 15:01> Orders Ordered: ED Orders 12/20/23 12:25 XR chest 2V Stat 12/20/23 12:50 Respiratory Panel (Film Array) Stat Vital Signs Vital signs: Vital Signs - 8 hr 12/20/23 11:26 12/20/23 14:29 Temperature 99 F Pulse Rate 90 80 Respiratory Rate 22 16 Blood Pressure 127/60 113/53 L Pulse Oximetry 100 100 Oxygen Delivery Method Room Air Room Air MDM - URI/Sore Throat <Makayla Guerrero PA-C - Last Filed: 12/20/23 14:38> Lab Data Lab results narrative: Respiratory panel is negative except for entero rhino virus. Labs: Lab Results 12/20/23 Range/Units 12:50 Chlamy pneumoniae PCR Not detected (Not Detect) Adenovirus (PCR) Not detected (Not Detect) B. pertussis DNA (PCR) Not detected (Not Detect) B.parapertussis DNA PCR Not detected (Not Detecte) Coronavirus OC43 (PCR) Not detected (Not Detect) Coronavirus HKU1 (PCR) Not detected (Not Detect) Coronavirus 229E (PCR) Not detected (Not Detect) SARS-CoV-2 (PCR) Not detected (Not Detecte) Coronavirus NL63 (PCR) Not detected (Not Detect) Human Metapneumovir PCR Not detected (Not Detect) Influenza Type A (PCR) Not detected (Not Detect) Influenza Type B (PCR) Not detected (Not Detect) M. pneumoniae (PCR) Not detected (Not Detect) Parainfluenza 1 (PCR) Not detected (Not Detect) Parainfluenza 2 (PCR) Not detected (Not Detect) Parainfluenza 3 (PCR) Not detected (Not Detect) Parainfluenza 4 (PCR) Not detected (Not Detect) RSV (PCR) Not detected (Not Detect) Entero/Rhino (PCR) Detected H (Not Detect) Imaging Data Chest x-ray: My Impression: Deferred to radiologist's official interpretation which is normal. Radiologist's Impression: PROCEDURE: XR CHEST 2V INDICATIONS: cough x 11 days TECHNIQUE: 2 views of the chest were acquired. COMPARISON: None. FINDINGS: Surgical changes and devices: None. Lungs and pleura: Lungs are clear. No pleural effusions or pneumothorax. Mediastinum: Mediastinal contours are normal. Heart size is normal. Bones and chest wall: No suspicious bony abnormalities. Soft tissues appear unremarkable. IMPRESSION: No acute cardiopulmonary abnormality is seen. Dictated by: Sabrina Cantu MD, PhD on 12/20/2023 at 13:03 Approved by: Sabrina Cantu MD, PhD on 12/20/2023 at 13:03 [facility] Narrative Medical decision making narrative: Her lung exam is normal, she does have a cough but I believe it is coming postnasal only and she does have some sinus tenderness mostly the right frontal and bilateral maxillary, no adenopathy. Her respiratory panel showed entero rhino virus, she will be treated for sinusitis, with Augmentin, I have also prescribed guaifenesin with codeine which he has had in the past so she can try to get some sleep and hopefully stop that cough cycle, we did discuss other home remedies including steam therapy, continue the Neti pot, nasal saline throughout the day, and please do follow up with her PCP. Red flag warning signs are reviewed in great detail, please return to the emergency department if you have any new worrisome symptoms or your symptoms persist or worsen. <Juan Jose Gabbi, - Last Filed: 12/20/23 15:01> Lab Data Labs: Lab Results 12/20/23 Range/Units 12:50 Chlamy pneumoniae PCR Not detected (Not Detect) Adenovirus (PCR) Not detected (Not Detect) B. pertussis DNA (PCR) Not detected (Not Detect) B.parapertussis DNA PCR Not detected (Not Detecte) Coronavirus OC43 (PCR) Not detected (Not Detect) Coronavirus HKU1 (PCR) Not detected (Not Detect) Coronavirus 229E (PCR) Not detected (Not Detect) SARS-CoV-2 (PCR) Not detected (Not Detecte) Coronavirus NL63 (PCR) Not detected (Not Detect) Human Metapneumovir PCR Not detected (Not Detect) Influenza Type A (PCR) Not detected (Not Detect) Influenza Type B (PCR) Not detected (Not Detect) M. pneumoniae (PCR) Not detected (Not Detect) Parainfluenza 1 (PCR) Not detected (Not Detect) Parainfluenza 2 (PCR) Not detected (Not Detect) Parainfluenza 3 (PCR) Not detected (Not Detect) Parainfluenza 4 (PCR) Not detected (Not Detect) RSV (PCR) Not detected (Not Detect) Entero/Rhino (PCR) Detected H (Not Detect) MDM Narrative Medical decision making narrative: Her lung exam is normal, she does have a cough but I believe it is coming postna ishmael only and she does have some sinus tenderness mostly the right frontal and bilateral maxillary, no adenopathy. Her respiratory panel showed entero rhino virus, she will be treated for sinusitis, with Augmentin, I have also prescribed guaifenesin with codeine which he has had in the past so she can try to get some sleep and hopefully stop that cough cycle, we did discuss other home remedies including steam therapy, continue the Neti pot, nasal saline throughout the day, and please do follow up with her PCP. Red flag warning signs are reviewed in great detail, please return to the emergency department if you have any new worrisome symptoms or your symptoms persist or worsen. Dr. Seo: I was immediately available in the department for consultation. Documentation has been reviewed. I agree with assessment and plan. Discharge Plan Departure Patient Disposition: Home Clinical Impression: Sinusitis Qualifiers: Sinusitis location: other Chronicity: acute Recurrence: non-recurrent Qualified Code(s): J01.80 - Other acute sinusitis URI (upper respiratory infection) Qualifiers: URI type: unspecified viral URI Qualified Code(s): J06.9 - Acute upper respiratory infection, unspecified Instructions: DI for Sinusitis Activity Restrictions/Additional Instructions: I have prescribed an antibiotic for sinusitis, your chest x-ray was normal. I have prescribed a cough syrup with codeine as well, please use caution as it can cause sedation and should not be used with zolpidem or any alcohol. Please do follow up with your primary care provider if your symptoms persist, please try steam therapy, hot shower, saline nasal spray, continue the Neti pot, and please do not hesitate to return to the emergency department if any of your symptoms worsen or change. Your respiratory panel was completely negative except for entero rhino virus. Red flag warning signs include difficulty breathing, chest pain, fever, any other worrisome symptoms. Prescriptions: New amoxicillin-pot clavulanate 875-125 mg tablet 1 tab PO BID Qty: 20 0RF codeine-guaifenesin 10-200 mg/5 mL liquid 5 ml PO Q6H Qty: 473 0RF No Action modulon 200 mg PO BID [place]-3 Fish Oil 300-1,000 mg capsule PO ketoconazole 2 % shampoo topical calcium carbonate 650 mg calcium (1,625 mg) tablet 1,300 mg PO DAILY cholecalciferol (vitamin D3) 25 mcg (1,000 unit) capsule 25 mcg PO DAILY amitriptyline 10 mg tablet 20 mg PO DAILY Qty: 60 3RF clonazepam 0.5 mg tablet 0.5 mg PO BID PRN (Reason: anxiety) Qty: 60 0RF Rx Instructions: Take one tablet twice/day as needed for anxiety zolpidem 5 mg tablet 5 mg PO BEDTIME PRN (Reason: insomnia) Qty: 90 3RF fluticasone propion-salmeterol [Advair Diskus] 100-50 mcg/dose blister with device 1 inh inhalation BID Qty: 60 2RF fluticasone propion-salmeterol [Advair Diskus] 100-50 mcg/dose blister with device 1 ea INHALATION BID Qty: 60 0RF Referrals: Radha Landry MD [Primary Care Provider] - Stand Alone Forms: Patient Portal/API
--- NOTE | 2023-12-20 12:25 | DI.RAD.S_ITS ---
PROCEDURE: XR CHEST 2V INDICATIONS: cough x 11 days TECHNIQUE: 2 views of the chest were acquired. COMPARISON: None. FINDINGS: Surgical changes and devices: None. Lungs and pleura: Lungs are clear. No pleural effusions or pneumothorax. Mediastinum: Mediastinal contours are normal. Heart size is normal. Bones and chest wall: No suspicious bony abnormalities. Soft tissues appear unremarkable. IMPRESSION: No acute cardiopulmonary abnormality is seen. Dictated by: Sabrina Cantu MD, PhD on 12/20/2023 at 13:03 Approved by: Sabrina Cantu MD, PhD on 12/20/2023 at 13:03
[2023-12-20 14:01] LABS: Adenovirus Not Detected (Not Detect); B. parapertussis Not Detected (Not Detecte); Bordetella pertussis Not Detected (Not Detect); Chlamydophila pneumoniae Not Detected (Not Detect); Coronavirus 229E Not Detected (Not Detect); Coronavirus HKU1 Not Detected (Not Detect); Coronavirus NL 63 Not Detected (Not Detect); Coronavirus OC43 Not Detected (Not Detect); Human Metapneumovirus Not Detected (Not Detect); Human Rhinovirus/Enterovirus Detected (Not Detect); Influenza A Not Detected (Not Detect); Influenza B Not Detected (Not Detect); Mycoplasma pneumoniae Not Detected (Not Detect); Parainfluenza Virus 1 Not Detected (Not Detect); Parainfluenza Virus 2 Not Detected (Not Detect); Parainfluenza Virus 3 Not Detected (Not Detect); Parainfluenza Virus 4 Not Detected (Not Detect); Respiratory Syncytial Virus Not Detected (Not Detect); SARS- CoV-2 Not Detected (Not Detecte)
[2023-12-20 14:29] VITALS: BP 113/53; PULSE 80; RESP 16; O2SAT 100
== END 2023-12-20 14:43 | disposition home or self-care (01) ==
PROVIDERS: Emergency Provider Physician Assistant Medical; Family Provider Family Medicine; PCP Family Medicine
DX: J06.9 Acute upper respiratory infection, unspecified (principal); J01.80 Other acute sinusitis; B34.8 Other viral infections of unspecified site; Z11.52 Encounter for screening for COVID-19
CPT/HCPCS: 71046; 87633; 99283

== ENCOUNTER → 2024-01-04 11:03 | Outpatient (CLI) | payer MEDICARE, OTHER, SELFPAY ==
--- NOTE | 2024-01-04 11:18 | DI.RAD.S_ITS ---
PROCEDURE: XR CHEST 2V INDICATIONS: Cough TECHNIQUE: 2 views of the chest were acquired. COMPARISON: [facility], CR, XR CHEST 2V, 12/20/2023, 12:32. FINDINGS: Surgical changes and devices: None. Lungs and pleura: Lungs are clear. No pleural effusions or pneumothorax. Mediastinum: Mediastinal contours are normal. Heart size is normal. Bones and chest wall: No suspicious bony abnormalities. Soft tissues appear unremarkable. IMPRESSION: No acute cardiopulmonary abnormality is seen. Dictated by: Bull Dunaway M.D. on 01/04/2024 at 20:22 Approved by: Bull Dunaway M.D. on 01/04/2024 at 20:23
[2024-01-04 12:22] LABS: Influenza A - CEPHEID Flu A NEGATIVE (NEGATIVE); Influenza B - CEPHEID Flu B NEGATIVE (NEGATIVE); Respiratory Syncytial Virus Negative (Negative)
[2024-01-04 12:42] LABS: COVID-19 CEPHEID 4-PLEX PCR POSITIVE (Negative)
== END ==
PROVIDERS: Family Provider Family Medicine; PCP Family Medicine; Referring Provider Nurse Practitioner Family; Visit Provider Nurse Practitioner Family
DX: R05.1 Acute cough (principal); R50.9 Fever, unspecified; R05.9 Cough, unspecified
CPT/HCPCS: 0241U; 71046

== ENCOUNTER → 2024-01-04 14:28 | Outpatient (CLI) | payer MEDICARE, OTHER, SELFPAY ==
[2024-01-04 16:06] LABS: Alanine Aminotransferase 19 IU/L (<35); Albumin 4.3 g/dL (3.5-5.0); Albumin Globulin Ratio 1.5 (1.0-2.8); Alkaline Phosphatase 69 U/L (38-126); Aspartate Aminotransferase 29 IU/L (14-36); BUN Creatinine Ratio 15.7 (6-22); Bilirubin Total 0.7 mg/dL (0.2-1.3); Blood Urea Nitrogen 14 mg/dL (7-17); Calcium 9.1 mg/dL (8.4-10.2); Carbon Dioxide 30 mmol/L (22-32); Chloride 100 mmol/L (98-107); Estimated Glomerular Filt Rate > 60 mL/min (>60); Globulin 2.8 g/dL (1.7-4.1); Glucose 84 mg/dL (80-110); HEMOLYSIS < 15 (0-50); Potassium 3.8 mmol/L (3.4-5.1); Sodium 137 mmol/L (137-145); Total Protein 7.1 g/dL (6.3-8.2)
== END ==
LOC: LAB 14:33
PROVIDERS: Family Provider Family Medicine; PCP Family Medicine; Referring Provider Nurse Practitioner Family; Visit Provider Nurse Practitioner Family
DX: B34.9 Viral infection, unspecified (principal)
CPT/HCPCS: 36415; 80053

== ENCOUNTER → 2024-08-28 09:44 | Outpatient (CLI) | payer MEDICARE, OTHER, SELFPAY ==
[2024-08-28 10:20] LABS: Add Manual Diff / Slide Review NO; Basophils Absolute Auto 0 /uL (0-100); Basophils Percent Auto 1.1 % (0-2); Eosinophils Absolute Auto 100 /uL (0-450); Eosinophils Percent Auto 2.3 % (2-4); Hematocrit 41.3 % (36-46); Hemoglobin 14.2 g/dL (12.0-16.0); Lymphocytes Absolute Auto 1400 /uL (1100-4500); Lymphocytes Percent Auto 35.8 % (25-40); Mean Corpuscular HGB Conc 34.3 % (30-36); Mean Corpuscular Hemoglobin 31.3 PG (26-34); Mean Corpuscular Volume 91.3 fL (80-100); Monocytes Absolute Auto 300 /uL (0-900); Monocytes Percent Auto 8.1 % (3-14); Neutrophils Absolute Auto 2100 /uL (1500-7000); Neutrophils Percent Auto 52.7 % (50-75); Platelet Count 190 X10^3/uL (150-400); Red Blood Cell Count 4.52 X10^6/uL (4.0-5.2); Red Cell Distribution Width 14.1 % (11.6-14.8); White Blood Cell Count 3.9 X10^3/uL (4.5-11.0)
[2024-08-28 10:50] LABS: Alanine Aminotransferase 14 IU/L (<35); Albumin 4.5 g/dL (3.5-5.0); Albumin Globulin Ratio 2.1 (1.0-2.8); Alkaline Phosphatase 65 U/L (38-126); Aspartate Aminotransferase 28 IU/L (14-36); BUN Creatinine Ratio 19.2 (6-22); Bilirubin Total 0.7 mg/dL (0.2-1.3); Blood Urea Nitrogen 14 mg/dL (7-17); Calcium 9.5 mg/dL (8.4-10.2); Carbon Dioxide 30 mmol/L (22-32); Chloride 103 mmol/L (98-107); Cholesterol 250 mg/dL (140-199); Estimated Glomerular Filt Rate > 60 mL/min (>60); Globulin 2.1 g/dL (1.7-4.1); Glucose 103 mg/dL (70-99); HDL Cholesterol 70 mg/dL (40-60); HEMOLYSIS < 15 (0-50); LDL Cholesterol Calculated 162 mg/dL (<100); Potassium 4.8 mmol/L (3.4-5.1); Sodium 139 mmol/L (137-145); Total Protein 6.6 g/dL (6.3-8.2); Triglycerides 92 mg/dL (35-150)
[2024-08-28 11:20] LABS: TSH w/ Reflex to FT4 0.84 uIU/mL (0.47-4.68)
== END ==
PROVIDERS: Family Provider Family Medicine; PCP Family Medicine; Referring Provider Family Medicine; Visit Provider Family Medicine
DX: E78.5 Hyperlipidemia, unspecified (principal); F41.9 Anxiety disorder, unspecified; F32.9 Major depressive disorder, single episode, unspecified; M81.0 Age-related osteoporosis without current pathological fracture; Z79.899 Other long term (current) drug therapy
CPT/HCPCS: 36415; 80053; 80061; 84443; 85025

== ENCOUNTER → 2024-09-01 12:20 | Outpatient (CLI) | payer MEDICARE, OTHER, SELFPAY ==
--- NOTE | 2024-09-01 12:22 | DI.MG.S_ITS ---
MM screening mammo BI: 09/01/2024. BI-RADS: 1 CLINICAL: 68-year old female for bilateral screening mammogram. Tyrer-Cuzick lifetime risk of 6.8%. No personal or first-degree family history of breast cancer. The patient had a prior right breast biopsy. PRIOR EXAMS 08/12/2023, 07/20/2022, 06/22/2021, 06/09/2020, 10/12/2019, 01/29/2019, 01/02/2019, 12/22/2017. MAMMOGRAPHY TECHNIQUE: 2D and 3D (tomosynthesis) digital mammographic views obtained, with additional images as needed for full coverage. Current study was also evaluated with a Computer Aided Detection (CAD) system. DENSITY D. The breasts are extremely dense, which lowers the sensitivity of mammography. MAMMOGRAPHY FINDINGS Bilateral: No suspicious mass, asymmetry, microcalcification, or other abnormality seen. No significant change from comparison. IMPRESSION: * No evidence of malignancy. RECOMMENDATIONS Bilateral * Annual screening mammography. OVERALL ASSESSMENT CATEGORY BI-RADS-1: Negative. The [employer] recommends annual screening mammography beginning at age 40 for women with average risk of breast cancer. ELECTRONICALLY SIGNED: Niurka Stephenson M.D. on 09/03/2024 at 04:09:52 PM PT Interpreting Station ID: [id number]
== END ==
LOC: MAMMO 12:22
PROVIDERS: Family Provider Family Medicine; PCP Family Medicine; Referring Provider Family Medicine; Visit Provider Family Medicine
DX: Z12.31 Encounter for screening mammogram for malignant neoplasm of breast (principal); R92.343 Mammographic extreme density, bilateral breasts
CPT/HCPCS: 77063; 77067

== ENCOUNTER → 2024-10-02 10:53 | Outpatient (CLI) | payer MEDICARE, OTHER, SELFPAY ==
[2024-10-04 08:40] LABS: Rubeola Measles IgG < 13.5 AU/mL (Immune >16.4)
== END ==
PROVIDERS: Family Provider Family Medicine; PCP Family Medicine; Referring Provider Family Medicine; Visit Provider Family Medicine
DX: Z78.9 Other specified health status (principal)
CPT/HCPCS: 36415; 86735; 86762; 86765

== ENCOUNTER → 2024-11-30 09:49 | Outpatient (CLI) | payer MEDICARE, OTHER, SELFPAY ==
[2024-11-30 11:34] LABS: HEMOLYSIS < 15 (0-50); Iron 65 ug/dL (37-170)
[2024-11-30 11:37] LABS: Cholesterol 239 mg/dL (140-199); HDL Cholesterol 79 mg/dL (40-60); Triglycerides 105 mg/dL (35-150)
[2024-11-30 11:46] LABS: Percent Iron Saturation 26 % (15-50); Total Iron Binding Capacity 251 ug/dL (265-497); Transferrin 215 mg/dL (206-381)
[2024-11-30 12:13] LABS: Ferritin 94 ng/mL (11-264)
== END ==
PROVIDERS: Family Provider Family Medicine; PCP Family Medicine; Referring Provider Family Medicine; Visit Provider Family Medicine
DX: E78.5 Hyperlipidemia, unspecified (principal); R53.83 Other fatigue
CPT/HCPCS: 36415; 80061; 82728; 83540; 83550